=== PATIENT | female | born 1985 | race Caucasian/White ===

== ENCOUNTER 2024-10-25 10:15 | Emergency (ER) | payer OTHER, SELFPAY ==
[2024-10-25 10:30] VITALS: BP 121/77; PULSE 78; RESP 16; TEMP 36.3; O2SAT 100
--- NOTE | 2024-10-25 11:08 | ED.BACK ---
HPI - Back Pain/Injury General Chief Complaint: Back Pain/Injury Stated Complaint: back/right inner hip pain Time Seen by Provider: 10/25/24 11:10 Source: patient and RN notes reviewed Mode of arrival: ambulatory Limitations: no limitations History of Present Illness HPI Narrative: 39-year-old female presents with concern for right-sided back pain that radiates to the right hip and groin area. She reports symptoms started as a twinge last night and when she woke up this morning and stood up from bed the pain became sharp and wrapped around her hip and down her leg. She denies loss of bowel or bladder function, perianal anesthesia, weakness in any extremity, fever, abdominal pain. She denies injury or trauma. She denies dysuria, frequency, urgency, hematuria MD elicited complaint: back pain Related Data Allergies Allergy/AdvReac Type Severity Reaction Status Date / Time No Known Allergies Allergy Verified 10/25/24 10:48 Review of Systems Review of Systems: CONSTITUTIONAL: Denies malaise, chills, sweats, or fever. CARDIOVASCULAR: Denies chest pain, palpitations, or edema. RESPIRATORY: Denies cough or dyspnea. GASTROINTESTINAL: Denies abdominal pain, nausea, vomiting, diarrhea, loss of bowel function GENITOURINARY: Denies dysuria, hematuria, frequency, loss of bladder function. SKIN: Denies rash or itching. MUSCULOSKELETAL: Reports right low back pain radiates to the groin and hip and thigh NEUROLOGIC: Denies numbness, weakness, or headache. All systems reviewed & are unremarkable except as noted in HPI and below PMFSH Family History Family History (Updated 06/14/18 @ 15:17 by DOCTOR UNKNOWN) Mother Diabetes mellitus Hypertension Family history of malignant neoplasm Comments At time of signature, agree with nursing past medical, surgical, social and family history. There is no relevant family history pertinent to the presenting complaint Exam Narrative: GENERAL: Well-appearing, well-nourished, and in no acute distress. HEAD: Normocephalic, atraumatic. EYES: PERRLA and EOMI. NECK: Supple. No lymphadenopathy. CHEST: Clear to auscultation. No respiratory distress. HEART: Regular rate and rhythm. Distal pulses palpable and equal, cap refill <3 seconds ABDOMEN: Soft, nontender, nondistended, normal active bowel sounds, no palpable or pulsatile masses. No CVA tenderness MUSCULOSKELETAL: Normal range of motion and strength in all extremities; 5/5 strength with hip flexion and extension, dorsiflexion and extension, knee flexion and extension, plantar flexion and extension. Normal sensation in dermatomal distributions with sensitivity to light touch and pain. No midline back tenderness to palpation. No paraspinal tenderness. Transfers from lying to sitting to standing. SKIN: Warm, dry, no rash. No ecchymosis, erythema, open wounds to back. NEURO: No focal deficits. Alert and oriented x3. Reflexes intact. Normal gait. PSYCH: Normal mood and affect Course Course Emergency Course: Patient is aware of diagnosis, understands and agrees to treatment plan. Anticipatory guidance given. Patient agrees to follow-up as directed and is aware of reasons to seek care at the emergency department. Portions of this record may have been created with voice recognition software Level of Care: [facility] Visit Vital Signs Vital signs: Vital Signs Temperature 97.4 F L 10/25/24 10:30 Pulse Rate 78 10/25/24 10:30 Respiratory Rate 16 10/25/24 10:30 Blood Pressure 121/77 10/25/24 10:30 Pulse Oximetry 100 10/25/24 10:30 Oxygen Delivery Room Air 10/25/24 10:30 Temperature 97.4 F L 10/25/24 10:30 Pulse Rate 78 10/25/24 10:30 Respiratory Rate 16 10/25/24 10:30 Blood Pressure 121/77 10/25/24 10:30 Pulse Oximetry 100 10/25/24 10:30 Oxygen Delivery Room Air 10/25/24 10:30 Reviewed. MDM - Back Pain/Injury MDM Narrative Medical decision making narrative: I evaluated this in the [facility]. History is obtained from patient who is an independent historian and physical exam was performed.? Available medical records were reviewed. ? Exam findings and relevant testing show no acute concerns or changes; patient is non-toxic appearing and is in no distress. No risk factors or findings concerning for epidural abscess, diskitis, vertebral osteomyelitis, cord compression, cauda equina, vertebral fracture or bone malignancy, AAA, or pyelonephritis. Patient instructed to consider further imaging and workup through their primary care physician as an outpatient if symptoms persist. ? Differential diagnosis and treatment plan were discussed with the patient. Patient agrees with discussion and after shared medical decision making agrees with plan of care. All questions were answered to the patient's satisfaction. Patient is appropriate for outpatient treatment and follow-up. Critical Care Time Critical Care Time Critical Care Time: No Discharge Plan Discharge Clinical Impression: Nonspecific low back pain Patient Disposition: Home, Self-Care Condition: Stable Instructions: Sciatica (ED) Additional Instructions: Please follow up with your Primary Care Doctor within 48-72 hours - call for an appointment. Walking and other gentle exercising several times a week has been shown to improve back pain; bed rest is not recommended. Take prednisone as directed, take muscle relaxers every 8 hours as needed for muscle spasm- do not drive or make any important decisions while on this medication for it can make you drowsy. You may apply ice to the area as needed. If you experience any worsening pain, swelling, numbness, weakness please go to ER. Contact your doctor or go to the emergency department if you develop problems with bladder or bowel function, weakness or loss of feeling in one or both of your legs, or any other serious concerns. Patient Language: Chadian Prescriptions: New cyclobenzaprine 10 mg tablet 10 mg PO TID PRN (Reason: muscle spasm) Qty: 20 0RF prednisone 20 mg tablet 40 mg PO DAILY 5 Days Qty: 10 0RF Follow-up/Referrals: PHYSICIAN,REVERBERATORY FURNACE SUPERVISOR [Primary Care Provider] - Stand Alone Forms: Work/School Release IP Time of Disposition: 11:18
== END 2024-10-25 11:30 | disposition home or self-care (01) ==
PROVIDERS: Emergency Provider Nurse Practitioner
DX: M54.50 Low back pain, unspecified (principal)
CPT/HCPCS: 99213; G0463

== ENCOUNTER 2025-04-21 10:19 | Emergency (ER) | payer OTHER, SELFPAY ==
[2025-04-21 10:28] VITALS: BP 126/80; PULSE 89; RESP 16; TEMP 36.6; O2SAT 100
--- NOTE | 2025-04-21 10:44 | ED.SKABFB ---
HPI - Skin/Abscess/Foreign Bdy General Chief complaint: Skin/Abscess/Foreign Body Stated complaint: Blister on RT foot Time Seen by Provider: 04/21/25 10:30 Source: patient and RN notes reviewed Mode of arrival: ambulatory Limitations: no limitations History of Present Illness HPI narrative: 39-year-old female presents [facility] complaining of blister right foot. Patient says the gone for the last 3-4 days, she about issues and said that her shoes read the side of her foot. Since then the blister is getting worse with increased redness, swelling, pain. Patient denies any warmth, fevers, body aches, chills, or any other symptoms. Patient denies any history of vascular disease or diabetes. Related Data Allergies Allergy/AdvReac Type Severity Reaction Status Date / Time No Known Allergies Allergy Verified 04/21/25 10:26 Review of Systems Review of Systems: CONSTITUTIONAL: Denies fever, chills, or sweats. EYES: Denies visual changes, redness, or discharge. ENT: Denies rhinorrhea, congestion, sore throat, or otalgia. CARDIOVASCULAR: Denies chest pain, palpitations, or edema. RESPIRATORY: Denies cough or dyspnea. GASTROINTESTINAL: Denies abdominal pain, nausea, vomiting, or diarrhea. GENITOURINARY: Denies dysuria or hematuria. SKIN: Denies rash or itching. Positive for wound. MUSCULOSKELETAL: Denies back pain, joint pain, or myalgia. NEUROLOGIC: Denies headache, numbness, or weakness. PSYCHIATRIC: Denies anxiety or depression. All other systems reviewed are negative, except as documented in HPI. [facility] Family History Family History Mother Diabetes mellitus Hypertension Family history of malignant neoplasm Comments At the time of my signature, I reviewed and agree with the nursing past medical, surgical, social, and family history. There is no relevant family history pertinent to the patient complaint. Exam Narrative: GENERAL: This is a well-nourished, well-developed adult, in no apparent distress. They are non ill-appearing, nontoxic appearing. HEAD: normocephalic, atraumatic. EYES: Sclera clear/white. Conjunctiva normal. Vision is grossly intact. Extraocular movements intact EARS: External ears normal, Hearing grossly intact. NOSE: External nose normal THROAT: Mucous membranes moist, NECK: Neck supple, CARDIOVASCULAR: Regular rate and rhythm RESPIRATORY: Respiratory rate normal, respiratory effort nonlabored, no respiratory distress SKIN: There is a blister to the medial dorsal surface the right foot. Has surrounding erythema measuring approximately 4 cm x 4 cm. Open vesicle measuring approximately 2 cm x 2 cm. No area of fluctuance, no induration, tender to palpate, no exudate. No warmth to palpation. NEURO: awake, alert, and oriented to person, place and time. There were no obvious focal neurologic abnormalities. EXTREMITIES: No joint tenderness, effusion, or edema noted. Course Course Emergency Course: Portions of this record may have been created with voice recognition software Level of Care: Express Care Visit Vital Signs Vital signs: Vital Signs Temperature 97.8 F 04/21/25 10:28 Pulse Rate 89 04/21/25 10:28 Respiratory Rate 16 04/21/25 10:28 Blood Pressure 126/80 04/21/25 10:28 Pulse Oximetry 100 04/21/25 10:28 Oxygen Delivery Room Air 04/21/25 10:28 Temperature 97.8 F 04/21/25 10:28 Pulse Rate 89 04/21/25 10:28 Respiratory Rate 16 04/21/25 10:28 Blood Pressure 126/80 04/21/25 10:28 Pulse Oximetry 100 04/21/25 10:28 Oxygen Delivery Room Air 04/21/25 10:28 Reviewed MDM - Skin/Abscess/Foreign Bdy MDM Narrative Medical decision making narrative: Given surrounding erythema to the patient's blister of her right foot prophylactically treat her with cephalexin. Band-Aid applied patient's wound along with antibiotic ointment. Discussed physical exam findings. Advised supportive measures and signs/symptoms to go to the ER. Pt is appropriate for outpt treatment and f/u. Differential Diagnosis Differential diagnosis: Likely abscess of skin or subcutaneous tissue, cellulitis, impetigo and other (Blister) Critical Care Time Critical Care Time Critical Care Time: No Discharge Plan Discharge Clinical Impression: Blister of foot, right Patient Disposition: Home Condition: Stable Instructions: Antibiotic Form, Blister (ED) Additional Instructions: Wash blister daily with mild soap and water, do not soak or scrub the wound. Please keep it dry and covered when you are on your feet, avoid any shoes that may continue to rub on the side ear foot. Wear a Band-Aid to protect it from friction. Avoid dirty water to the wound has healed completely. Take cephalexin as directed. Follow-up PCP in 3-5 days. Go to ER if you developed worsening redness, swelling, pain, green/yellow discharge, fevers, body aches, chills, or any serious symptoms. Patient Language: Russian Prescriptions: New cephalexin 500 mg capsule 500 mg PO Q6H 5 Days Qty: 20 0RF Follow-up/Referrals: PHYSICIAN,EXERCISE PHYSIOLOGIST CERTIFIED [Primary Care Provider] - Time of Disposition: 10:41
== END 2025-04-21 10:45 | disposition home or self-care (01) ==
DX: S90.821A Blister (nonthermal), right foot, initial encounter (principal); X58.XXXA Exposure to other specified factors, initial encounter
CPT/HCPCS: 99213; G0463